=== PATIENT | female | born 1965 | race African-American/Black ===

== ENCOUNTER 2021-09-04 10:30 | Inpatient (IN) | payer MEDICAID ==
[~2021-09-04] VITALS: Ht 152.4 cm; Wt 124.8 kg
[~2021-09-04 10:30] MED LIST: AMLO-489 PO; FLUO-125 PO; LURA80TA PO; METO25TA5 PO; QUET200T45 PO
[2021-09-04] MEDS ORDERED: IPRATROPIUM BROM 0.5 MG/2.5ML INH SOL NEB ONE ×2 (12:15→12:45)
[2021-09-04] MEDS ORDERED: MAGNESIUM SULFATE 1GM/100ML 100 ML IV ONE (12:15)
[2021-09-04] MEDS ORDERED: ASPirin 81 mg TAB PO ONE (12:15)
[2021-09-04] MEDS ORDERED: ALBUTEROL SULF 2.5 MG/0.5ML(0.5%) NEB SOLN NEB ONE ×2 (12:15→12:45)
[2021-09-04 12:37] LABS: Basophils # (auto) 0.1 10 ^3/uL (0-0.2); Eosinophils # (auto) 0.2 10 ^3/uL (0-0.8); Eosinophils % (auto) 2.3 % (0.0-7.0); Hematocrit 35.9 % (36.0-46.0); Hemoglobin 11.6 g/dL (12.2-16.2); Lymphocytes # (auto) 2.6 10 ^3/uL (0.4-5.4); Lymphocytes % (auto) 31.7 % (10.0-50.0); Mean Corpuscular Hemoglobin 29.3 pg (28.0-32.0); Mean Corpuscular Hgb Conc. 32.4 g/dL (32.0-36.0); Mean Corpuscular Volume 90.4 fL (80.0-100.0); Monocytes # (auto) 0.7 10 ^3/uL (0-1.3); Monocytes % (auto) 8.3 % (0.0-12.0); Neutrophils # (auto) 4.7 10 ^3/uL (1.6-8.6); Neutrophils % (auto) 56.7 % (37.0-80.0); Nucleated Red Blood Cells % 0.2 %; Red Blood Cells 3.97 10^6/uL (4.0-5.20); Red Cell Distribution Width 14.3 % (11.8-14.3); White Blood Cell 8.3 10^3/uL (4.4-10.8)
[2021-09-04 12:55] LABS: Albumin 3.3 g/dL (3.4-5.0); BUN/Creatinine Ratio 21.2; Calcium 8.6 mg/dL (8.5-10.1); Potassium 3.8 mmol/L (3.5-5.1)
[2021-09-04 13:00] LABS: Bilirubin, Total 0.4 mg/dL (0.2-1.0); Total Protein 7.2 g/dL (6.4-8.2)
[2021-09-04] MEDS ORDERED: amLODIPine BESYLATE 5 MG TAB PO ONE (13:15)
[2021-09-04 14:18] LABS: Alcohol, Urine < 3.0 mg/dL (0-10); Amphetamine Screen, Urine NEGATIVE (NEGATIVE); Barbiturate Scree,Urine NEGATIVE (NEGATIVE); Benzodiazephine Screen, Urine NEGATIVE (NEGATIVE); Cannabinoid Screen, Urine NEGATIVE (NEGATIVE); Cocaine Screen, Urine NEGATIVE (NEGATIVE); Opiate Scree,Urine NEGATIVE (NEGATIVE); Phencyclidine Screen, Urine NEGATIVE (NEGATIVE)
[2021-09-04] MEDS ORDERED: cloNIDine HCL 0.1 MG TAB PO ONE (14:30)
[2021-09-04] MEDS ORDERED: predniSONE 20 MG TAB PO ONE (15:00)
[2021-09-04 15:14] LABS: Urine Bacteria FEW /hpf (None Seen); Urine Blood Negative /uL (Negative); Urine Mucus FEW (None Seen); Urine Specific Gravity 1.025 (1.001-1.035); Urine WBC 1 /hpf (0 - 5)
[2021-09-04] MEDS ORDERED: ENALAPRILAT 1.25 MG/ML-1ML VIAL IV ONE (15:15)
[2021-09-04] MEDS ORDERED: ONDANSETRON HCL 4 MG/2 ML VIAL IV PRN (16:15)
[2021-09-04] MEDS ORDERED: NITROGLYCERIN 0.4 MG SL TAB SL PRN (16:15)
[2021-09-04] MEDS ORDERED: MORPHINE SULFATE INJECTION 2 MG/ML SYRG IV PRN (16:15)
[2021-09-04 16:56] LABS: Cholesterol 152 mg/dL (< 200); HDL Cholesterol 55 mg/dL (40-59); LDL Cholesterol 77 mg/dL (< 100); Triglycerides 56 mg/dL (< 150)
[2021-09-04] MEDS: cloNIDine HCL 0.1 MG TAB PO PRN ×2 (17:48→22:21)
[2021-09-04] MEDS: ALBUTEROL SULF 2.5 MG/0.5ML(0.5%) NEB SOLN NEB SCH (18:24)
[2021-09-04] MEDS: IPRATROPIUM BROM 0.5 MG/2.5ML INH SOL NEB SCH (18:24)
[2021-09-04] MEDS: BUDESONIDE (INHALATION) 0.5 MG/2 ML NEB NEB SCH (18:24)
[2021-09-04] MEDS ORDERED: ASPI1TAB20 PO (18:27)
[2021-09-04 18:34] VITALS: BP 186/86
[2021-09-04] MEDS: FAMOTIDINE 20 MG TAB PO SCH (22:14)
[2021-09-04] MEDS: METOPROLOL TARTRATE 25 MG TAB PO SCH (22:15)
[2021-09-05 04:53] VITALS: BP 145/93
[2021-09-05] MEDS: ALBUTEROL SULF 2.5 MG/0.5ML(0.5%) NEB SOLN NEB SCH (06:26)
[2021-09-05] MEDS: BUDESONIDE (INHALATION) 0.5 MG/2 ML NEB NEB SCH (06:26)
[2021-09-05] MEDS: IPRATROPIUM BROM 0.5 MG/2.5ML INH SOL NEB SCH (06:26)
[2021-09-05 09:00] VITALS: BP 165/79
[2021-09-05] MEDS ORDERED: FLUoxetine HCL 20 MG CAP PO SCH (10:00)
[2021-09-05] MEDS ORDERED: amLODIPine BESYLATE 5 MG TAB PO SCH (10:00)
[2021-09-05] MEDS ORDERED: QUEtiapine FUMARATE 100 MG TAB PO SCH (10:00)
[2021-09-05] MEDS: METOPROLOL TARTRATE 25 MG TAB PO SCH (10:59)
[2021-09-05] MEDS: FAMOTIDINE 20 MG TAB PO SCH (11:02)
[2021-09-05 13:00] VITALS: BP 159/84
[2021-09-05] MEDS ORDERED: FLUT110A INH (13:18)
[2021-09-05] MEDS ORDERED: PRED20TA2 PO (13:18)
[2021-09-05] MEDS ORDERED: FAMO-161 PO (13:18)
[2021-09-05] MEDS ORDERED: METO25TA5 PO (13:18)
[2021-09-05] MEDS ORDERED: AMLO-489 PO (13:18)
[2021-09-05] MEDS ORDERED: CLON0.1T PO (13:18)
[2021-09-05] MEDS ORDERED: LIDO16CR EX (13:21)
[2021-09-05 15:57] VITALS: BP 161/92
== END 2021-09-05 17:26 | disposition home or self-care (01) | DRG 199 ==
LOC: EDBD 10:30 → ER 10:30 → TELE 16:09 → TELE-WESTW 17:57
PROVIDERS: ADMIT Hospitalist; ATTEND Hospitalist
DX: I16.1 Hypertensive emergency (principal); J96.01 Acute respiratory failure with hypoxia; I21.4 Non-ST elevation (NSTEMI) myocardial infarction; J45.901 Unspecified asthma with (acute) exacerbation; Z68.43 Body mass index [BMI] 50.0-59.9, adult; I11.9 Hypertensive heart disease without heart failure; Z20.822 Contact with and (suspected) exposure to COVID-19; E66.01 Morbid (severe) obesity due to excess calories; F17.210 Nicotine dependence, cigarettes, uncomplicated; F20.9 Schizophrenia, unspecified; Z88.0 Allergy status to penicillin; Z82.49 Family history of ischemic heart disease and other diseases of the circulatory system; Z86.73 Personal history of transient ischemic attack (TIA), and cerebral infarction without residual deficits
CPT/HCPCS: 36415; 71045; 80053; 80061; 80307; 81001; 83036; 83735; 83880; 84484; 85025; 87426; 93005; 93306; 94640; 96365; 96375; 99291; G0378

== ENCOUNTER 2023-03-12 08:41 | Inpatient (IN) | payer MEDICAID ==
[~2023-03-12] VITALS: Ht 144.8 cm; Wt 122.0 kg
[2023-03-12 00:20] VITALS: BP 152/89; PULSE 80; RESP 17; TEMP 98.3
[~2023-03-12 08:41] MED LIST changes: -AMLO-489 PO; +AMLO1TAB22 PO; +ASPI1TAB20 PO; +CLON0.1T PO; +FAMO-161 PO; +FLUT110A INH; +LIDO16CR EX; -LURA80TA PO; +LURA80TA2 PO; +PRED20TA2 PO
[2023-03-12] MEDS ORDERED: amLODIPine BESYLATE 5 MG TAB PO ONE (09:15)
[2023-03-12 11:23] LABS: Basophils # (auto) 0.1 10 ^3/uL (0-0.2); Basophils % (auto) 0.9 % (0.0-2.0); Eosinophils # (auto) 0.3 10 ^3/uL (0-0.8); Eosinophils % (auto) 3.2 % (0.0-7.0); Hematocrit 38.7 % (36.0-46.0); Hemoglobin 12.6 g/dL (12.2-16.2); Lymphocytes # (auto) 2.9 10 ^3/uL (0.4-5.4); Lymphocytes % (auto) 34.8 % (10.0-50.0); Mean Corpuscular Hemoglobin 29.1 pg (28.0-32.0); Mean Corpuscular Hgb Conc. 32.5 g/dL (32.0-36.0); Mean Corpuscular Volume 89.4 fL (80.0-100.0); Monocytes # (auto) 0.5 10 ^3/uL (0-1.3); Monocytes % (auto) 6.3 % (0.0-12.0); Neutrophils # (auto) 4.6 10 ^3/uL (1.6-8.6); Neutrophils % (auto) 54.8 % (37.0-80.0); Nucleated Red Blood Cells % 0.1 %; Red Blood Cells 4.33 10^6/uL (4.0-5.20); Red Cell Distribution Width 15.1 % (11.8-14.3); White Blood Cell 8.4 10^3/uL (4.4-10.8)
[2023-03-12 11:25] LABS: Albumin 3.3 g/dL (3.4-5.0); BUN/Creatinine Ratio 18.8 (10.0-20.0); Calcium 8.6 mg/dL (8.5-10.1); Potassium 3.7 mmol/L (3.5-5.1)
[2023-03-12 11:28] LABS: Bilirubin, Total 0.3 mg/dL (0.2-1.0); Total Protein 7.7 g/dL (6.4-8.2)
[2023-03-12] MEDS ORDERED: CEFTRIAXONE SODIUM 2 GM in D5W 5% 100 ML IV ONE (12:15)
[2023-03-12] MEDS ORDERED: ONDANSETRON HCL 4 MG/2 ML VIAL IV PRN (13:30)
[2023-03-12] MEDS ORDERED: MORPHINE SULFATE INJ 2 MG/ml SYRG IV PRN (13:30)
[2023-03-12] MEDS ORDERED: NITROGLYCERIN 0.4 MG SL TAB SL PRN (13:30)
[2023-03-12] MEDS ORDERED: DOCUSATE SOD 100 MG CAP PO PRN (13:30)
[2023-03-12] MEDS ORDERED: CLINDAMYCIN 300MG IV 50 ML IV ONE (13:30)
[2023-03-12] MEDS ORDERED: HYDROcodone-ACET 5/325MG TAB PO PRN (13:30)
[2023-03-12] MEDS: SODIUM CHLOR 0.9% PF (SALINE LOCK) 10ML VIAL/SYR IV SCH ×2 (14:00→22:30)
[2023-03-12 15:01] LABS: Cholesterol 150 mg/dL (< 200); HDL Cholesterol 55 mg/dL (40-59); LDL Cholesterol 88 mg/dL (< 100); Triglycerides 59 mg/dL (< 150)
[2023-03-12 15:13] VITALS: BP 179/108; PULSE 78; RESP 20; TEMP 97.5; O2SAT 95
[2023-03-12] MEDS: CLINDAMYCIN 300MG IV 50 ML IV SCH ×2 (18:57→22:00)
[2023-03-12] MEDS: ENOXAPARIN SOD 40 MG/0.4 ML SYRINGE SC SCH (18:57)
[2023-03-12] MEDS: cloNIDine HCL 0.1 MG TAB PO SCH ×2 (18:58→22:00)
[2023-03-12 21:15] VITALS: PULSE 90; RESP 16; O2SAT 97
[2023-03-12] MEDS: QUEtiapine FUMARATE 100 MG TAB PO SCH (22:31)
[2023-03-12] MEDS: FAMOTIDINE 20 MG TAB PO SCH (22:31)
[2023-03-12] MEDS: METOPROLOL TARTRATE 25 MG TAB PO SCH (22:31)
[2023-03-12 23:54] VITALS: PULSE 71; RESP 20; O2SAT 96
[2023-03-13] VITALS (14 sets, daily range): BP systolic 147–190; BP diastolic 70–89; PULSE 61–89; RESP 17–22; TEMP 97.4–98.8; O2SAT 91–99
[2023-03-13] MEDS: BUDESONIDE (INHALATION) 0.5 MG/2 ML NEB NEB SCH ×3 (00:25→20:33)
[2023-03-13] MEDS ORDERED: ARIP1TAB7 PO (01:12)
[2023-03-13] MEDS: cloNIDine HCL 0.1 MG TAB PO SCH ×3 (05:16→21:58)
[2023-03-13] MEDS: CLINDAMYCIN 300MG IV 50 ML IV SCH ×3 (05:17→22:49)
[2023-03-13] MEDS: SODIUM CHLOR 0.9% PF (SALINE LOCK) 10ML VIAL/SYR IV SCH ×3 (05:18→21:59)
[2023-03-13 06:34] LABS: Basophils # (auto) 0 10 ^3/uL (0-0.2); Basophils % (auto) 0.5 % (0.0-2.0); Eosinophils # (auto) 0.2 10 ^3/uL (0-0.8); Eosinophils % (auto) 2.6 % (0.0-7.0); Hematocrit 38.1 % (36.0-46.0); Hemoglobin 12.8 g/dL (12.2-16.2); Lymphocytes # (auto) 2.5 10 ^3/uL (0.4-5.4); Lymphocytes % (auto) 28.7 % (10.0-50.0); Mean Corpuscular Hemoglobin 29.5 pg (28.0-32.0); Mean Corpuscular Hgb Conc. 33.5 g/dL (32.0-36.0); Mean Corpuscular Volume 88.1 fL (80.0-100.0); Monocytes # (auto) 0.6 10 ^3/uL (0-1.3); Monocytes % (auto) 6.6 % (0.0-12.0); Neutrophils # (auto) 5.4 10 ^3/uL (1.6-8.6); Neutrophils % (auto) 61.6 % (37.0-80.0); Nucleated Red Blood Cells % 0.1 %; Red Blood Cells 4.33 10^6/uL (4.0-5.20); Red Cell Distribution Width 14.9 % (11.8-14.3); White Blood Cell 8.8 10^3/uL (4.4-10.8)
[2023-03-13 06:50] LABS: Albumin 3.1 g/dL (3.4-5.0); Calcium 8.6 mg/dL (8.5-10.1); Potassium 3.6 mmol/L (3.5-5.1)
[2023-03-13 06:56] LABS: BUN/Creatinine Ratio 21.3 (10.0-20.0); Bilirubin, Total 0.4 mg/dL (0.2-1.0); Total Protein 7.7 g/dL (6.4-8.2)
[2023-03-13] MEDS: ASPirin-EC 81 mg tab PO SCH (09:19)
[2023-03-13] MEDS: QUEtiapine FUMARATE 100 MG TAB PO SCH ×2 (09:19→21:57)
[2023-03-13] MEDS: FLUoxetine HCL 20 MG CAP PO SCH (09:20)
[2023-03-13] MEDS: amLODIPine BESYLATE 5 MG TAB PO SCH (09:20)
[2023-03-13] MEDS: ENOXAPARIN SOD 40 MG/0.4 ML SYRINGE SC SCH (09:21)
[2023-03-13] MEDS: predniSONE 20 MG TAB PO SCH (09:21)
[2023-03-13] MEDS: FAMOTIDINE 20 MG TAB PO SCH ×2 (09:21→21:57)
[2023-03-13] MEDS: METOPROLOL TARTRATE 25 MG TAB PO SCH ×2 (09:49→21:57)
[2023-03-13] MEDS ORDERED: LISINOPRIL 5 MG TAB PO SCH (10:00)
[2023-03-13] MEDS: LURASIDONE HCL 120 MG PO SCH (10:00)
[2023-03-13] MEDS: hydrALAZINE HCL 20 MG/ML VL IV PRN (17:17)
[2023-03-14] VITALS (11 sets, daily range): BP systolic 130–168; BP diastolic 66–79; PULSE 56–74; RESP 14–24; TEMP 97.9–98.7; O2SAT 87–99
[2023-03-14 04:24] LABS: Basophils # (auto) 0.1 10 ^3/uL (0-0.2); Basophils % (auto) 1.3 % (0.0-2.0); Eosinophils # (auto) 0.1 10 ^3/uL (0-0.8); Eosinophils % (auto) 1.4 % (0.0-7.0); Hematocrit 39.1 % (36.0-46.0); Lymphocytes # (auto) 3.1 10 ^3/uL (0.4-5.4); Lymphocytes % (auto) 31.7 % (10.0-50.0); Mean Corpuscular Hemoglobin 29.2 pg (28.0-32.0); Mean Corpuscular Hgb Conc. 33.1 g/dL (32.0-36.0); Mean Corpuscular Volume 88.3 fL (80.0-100.0); Monocytes # (auto) 0.7 10 ^3/uL (0-1.3); Monocytes % (auto) 7.1 % (0.0-12.0); Neutrophils # (auto) 5.7 10 ^3/uL (1.6-8.6); Neutrophils % (auto) 58.5 % (37.0-80.0); Nucleated Red Blood Cells % 0.1 %; Red Blood Cells 4.43 10^6/uL (4.0-5.20); Red Cell Distribution Width 14.9 % (11.8-14.3); White Blood Cell 9.8 10^3/uL (4.4-10.8)
[2023-03-14 04:29] LABS: BUN/Creatinine Ratio 28.6 (10.0-20.0); Calcium 8.7 mg/dL (8.5-10.1); Potassium 3.8 mmol/L (3.5-5.1)
[2023-03-14] MEDS: cloNIDine HCL 0.1 MG TAB PO SCH ×3 (06:14→21:51)
[2023-03-14] MEDS: CLINDAMYCIN 300MG IV 50 ML IV SCH (06:14)
[2023-03-14] MEDS: SODIUM CHLOR 0.9% PF (SALINE LOCK) 10ML VIAL/SYR IV SCH ×3 (06:15→21:51)
[2023-03-14] MEDS: FAMOTIDINE 20 MG TAB PO SCH ×2 (08:34→21:48)
[2023-03-14] MEDS: ASPirin-EC 81 mg tab PO SCH (08:34)
[2023-03-14] MEDS: METOPROLOL TARTRATE 25 MG TAB PO SCH ×2 (08:35→21:50)
[2023-03-14] MEDS: QUEtiapine FUMARATE 100 MG TAB PO SCH ×2 (08:35→21:48)
[2023-03-14] MEDS: amLODIPine BESYLATE 5 MG TAB PO SCH (08:35)
[2023-03-14] MEDS: ENOXAPARIN SOD 40 MG/0.4 ML SYRINGE SC SCH (08:36)
[2023-03-14] MEDS: predniSONE 20 MG TAB PO SCH (08:36)
[2023-03-14] MEDS: FLUoxetine HCL 20 MG CAP PO SCH (08:36)
[2023-03-14] MEDS: VALSARTAN 80 MG TAB PO SCH (08:36)
[2023-03-14] MEDS: LURASIDONE HCL 120 MG PO SCH (09:57)
[2023-03-14] MEDS: BUDESONIDE (INHALATION) 0.5 MG/2 ML NEB NEB SCH ×2 (10:20→18:08)
[2023-03-14] MEDS: CLINDAMYCIN HCL 150 MG CAP PO SCH ×2 (14:40→21:47)
[2023-03-14] MEDS ORDERED: ATORVASTATIN 20 MG TAB PO SCH (22:00)
[2023-03-15 05:00] VITALS: BP 160/77; PULSE 54; RESP 19; TEMP 98; O2SAT 94
[2023-03-15] MEDS: CLINDAMYCIN HCL 150 MG CAP PO SCH (05:08)
[2023-03-15] MEDS: cloNIDine HCL 0.1 MG TAB PO SCH (05:09)
[2023-03-15] MEDS: SODIUM CHLOR 0.9% PF (SALINE LOCK) 10ML VIAL/SYR IV SCH (05:09)
[2023-03-15] MEDS: hydrALAZINE HCL 20 MG/ML VL IV PRN (05:10)
[2023-03-15 05:36] LABS: Potassium 3.8 mmol/L (3.5-5.1)
[2023-03-15 05:48] LABS: Albumin 3.2 g/dL (3.4-5.0); BUN/Creatinine Ratio 19.3 (10.0-20.0); Bilirubin, Total 0.4 mg/dL (0.2-1.0)
[2023-03-15 05:59] LABS: Basophils # (auto) 0 10 ^3/uL (0-0.2); Basophils % (auto) 0.3 % (0.0-2.0); Eosinophils # (auto) 0.1 10 ^3/uL (0-0.8); Eosinophils % (auto) 1.3 % (0.0-7.0); Hematocrit 40.7 % (36.0-46.0); Hemoglobin 13.3 g/dL (12.2-16.2); Lymphocytes # (auto) 4.4 10 ^3/uL (0.4-5.4); Mean Corpuscular Hemoglobin 29.3 pg (28.0-32.0); Mean Corpuscular Hgb Conc. 32.7 g/dL (32.0-36.0); Mean Corpuscular Volume 89.5 fL (80.0-100.0); Monocytes # (auto) 0.7 10 ^3/uL (0-1.3); Monocytes % (auto) 6.2 % (0.0-12.0); Neutrophils # (auto) 6.3 10 ^3/uL (1.6-8.6); Neutrophils % (auto) 54.2 % (37.0-80.0); Nucleated Red Blood Cells % 0.3 %; Red Blood Cells 4.55 10^6/uL (4.0-5.20); Red Cell Distribution Width 15.1 % (11.8-14.3); White Blood Cell 11.7 10^3/uL (4.4-10.8)
[2023-03-15 09:00] VITALS: BP 183/79; PULSE 70; RESP 21; TEMP 97.7; O2SAT 92
[2023-03-15] MEDS ORDERED: CLIN300C70 PO (09:32)
[2023-03-15 09:50] VITALS: BP 183/79; PULSE 82; RESP 18; O2SAT 99
[2023-03-15] MEDS: BUDESONIDE (INHALATION) 0.5 MG/2 ML NEB NEB SCH (09:50)
[2023-03-15] MEDS: LURASIDONE HCL 120 MG PO SCH (09:57)
[2023-03-15 10:00] VITALS: PULSE 65; RESP 18; O2SAT 99
[2023-03-15] MEDS: FAMOTIDINE 20 MG TAB PO SCH (10:00)
[2023-03-15] MEDS: FLUoxetine HCL 20 MG CAP PO SCH (10:00)
[2023-03-15] MEDS: QUEtiapine FUMARATE 100 MG TAB PO SCH (10:00)
[2023-03-15] MEDS: ENOXAPARIN SOD 40 MG/0.4 ML SYRINGE SC SCH (10:00)
[2023-03-15] MEDS: predniSONE 20 MG TAB PO SCH (10:00)
[2023-03-15] MEDS: METOPROLOL TARTRATE 25 MG TAB PO SCH (10:01)
[2023-03-15] MEDS: ASPirin-EC 81 mg tab PO SCH (10:01)
[2023-03-15] MEDS: VALSARTAN 80 MG TAB PO SCH (10:02)
[2023-03-15] MEDS: amLODIPine BESYLATE 5 MG TAB PO SCH (10:02)
[2023-03-15 10:04] LABS: Hepatitis B Surface Antibody Negative (Negative)
[2023-03-15 12:53] LABS: Hepatitis B Surface Antigen Negative (Negative)
== END 2023-03-15 12:30 | disposition home or self-care (01) | DRG 383 ==
LOC: ER 08:41 → OVERFLOW 13:30 → CENTRAL 22:15
PROVIDERS: ADMIT Internal Medicine Pulmonary Disease; ATTEND Internal Medicine
DX: L03.116 Cellulitis of left lower limb (principal); Z68.43 Body mass index [BMI] 50.0-59.9, adult; E66.01 Morbid (severe) obesity due to excess calories; F17.210 Nicotine dependence, cigarettes, uncomplicated; F41.9 Anxiety disorder, unspecified; F20.9 Schizophrenia, unspecified; I16.0 Hypertensive urgency; J44.9 Chronic obstructive pulmonary disease, unspecified; F32.A Depression, unspecified; K21.9 Gastro-esophageal reflux disease without esophagitis; Z88.0 Allergy status to penicillin; Z86.73 Personal history of transient ischemic attack (TIA), and cerebral infarction without residual deficits
CPT/HCPCS: 36415; 80048; 80053; 80061; 83605; 83880; 85025; 86703; 86706; 86803; 87040; 87340; 93971; 94640; 96365; 96367; 96375; 97163; G0378; J0696; J3490; J7060

== ENCOUNTER 2024-09-04 22:01 | Emergency (ER) | payer MEDICAID ==
[~2024-09-04] VITALS: Ht 152.4 cm; Wt 81.8 kg
[~2024-09-04 22:01] MED LIST changes: +ARIP20TA4 PO; +CLIN1CAP70 PO
[2024-09-04 22:50] VITALS: BP 198/92; TEMP 97.8
--- NOTE | 2024-09-04 23:00 | ECG ---
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
[2024-09-04 23:17] VITALS: PULSE 101; RESP 18; O2SAT 93
--- NOTE | 2024-09-05 00:32 | ED.PDOC ---
HPI (NEURO) HPI Comments 58y F who presents to the ED via EMS for chief complaint of generalized weakness. Pt states she has been having generalize weakness since earlier this AM. Pt states this AM, she had trouble getting out of bed and reaching her walker and called EMS. EMS states pt had elevated heart rate at 111 with noted BP with systolic value in the 180's upon arrival to residence. Pt now in the ED, has stable vitals. Pt in the ED, states she has history of HTN but states she has not taken her medications in the past 4 months. Pt has noted history of CVA in 2015 with speech deficits. Pt has history of HTN, hyperlipidemia, and schizophrenia. Pt is alert and oriented x 4. Pt denies any other symptoms at this time. Chief Complaint: General Weakness Time Seen by MD: 00:25 Primary Care Provider: KRISTI Barba Notes: Hardscape Foreman Notes Information Source: Patient Mode of Arrival: EMS Brought in by: EMS Vital Signs Vital Signs Date Time Temp Pulse Resp B/P (MAP) Pulse Ox O2 Delivery O2 Flow Rate FiO2 09/05/24 00:34 94 09/04/24 23:17 18 93 Room Air* 0 21 09/04/24 22:50 97.8 198/92 (127) 97.8 Past Medical History PAST MEDICAL HISTORY: Anxiety, Depression, HTN, Schizophrenia, TIA Surgical History: Denies all surgeries MEDICATION CARE MANAGER History: Denies all MEDICATION CARE MANAGER Hx Family History Family History: Reviewed,noncontributory to illness Social History Smoker: Cigarettes, Less Than 1 Pack/Day Alcohol: Denies ETOH Use Drugs: Denies Drug Use Lives In: Home EKG EKG : Pulse Rate (adult): 94 [place]: Normal Cardiac Rhythm: NSR Block: None Hypertrophy: LAE, LVH ST: Normal Comments borderline prolonged NE interval, Was a procedure done? Was a procedure done?: No Differential Diagnosis (SZ) General Weakness: Anemia, Electrolyte imbalance, Encephalopathy, Hypoglycemia, Hypotension, TIA, Vertigo: central, Vertigo: peripheral, Other (HTN, HTN urgency, ) X-Ray, Labs, Meds, VS Vital Signs Date Time Temp Pulse Resp B/P (MAP) Pulse Ox O2 Delivery O2 Flow Rate FiO2 09/05/24 00:34 94 09/04/24 23:17 101 18 93 Room Air* 0 21 09/04/24 22:50 97.8 101 20 198/92 (127) 93 97.8 2/10/25 22:23 94 09/04/24 22:13 94 09/04/24 22:06 97.5 111 16 153/90 (595) 94 Time of 1ST Reevaluation: 00:55 Reevaluation 1ST: Unchanged Patient Education/Counseling: Other Family Education/Counseling: No Family Present Departure 1 Departure Time of Disposition: 02:32 Impression: Primary Impression: Hypertension Additional Impression: Eloped from emergency department Disposition: 07 LEFT AWOL/ELOPED Condition: Stable Comments 58-year-old female who came to the emergency department because she has stated she felt too weak to get up from her bed to her walker. She has been out of her high blood pressure medication. The patient was awake, alert, oriented. She initially refused lab stating she did not want to be here. Discussed with her sister "Caprice" over the phone who stated patient has a history of schizophrenia.. Patient eloped from the emergency department. She was observed by nurse to be able to ambulate on her own without difficulty. I was unable to locate patient in the emergency department, in the lobby or outside of the emergency department. Patient's sister was notified that she cleft. Extensive evaluation was performed in attempt to identify or rule out: (See differential diagnosis section) The following tests were ordered, and results were reviewed by me: (See diagnostic results section) The following test were independently interpreted by me: EKG I reviewed and agreed with the following test results read by other providers: N/A I reviewed the following notes from the pt's past medical encounters: N/A Additional information was gathered from interviewing the following independent historians: Patient's sister Discussion of management or test interpretation with external physician/other qualified health caretaker: N/A Addressed an acute or chronic illness that poses a threat to life or bodily function: Difficulty ambulating, uncontrolled hypertension Decision regarding hospitalization or escalation of hospital level of care: Risk and benefits of admission for further treatment of patient's condition was considered. Due to patient's current clinical condition, high risk of decline and poor outcome if discharged and need for further inpatient management and monitoring, patient will be admitted to the hospital. Drug therapy requiring intensive monitoring for toxicity: N/A Parenteral controlled substances: N/A Decision regarding elective major surgery with identified patient or procedure risk factors: N/A Decision regarding emergency major surgery: N/A Decision not to resuscitate or to de-escalate care because of poor prognosis: N/A Diagnosis or treatment significantly limited by social determinants of health: N/A Critical Care Note Critical Care Time?: No Stability Stability form required: No Heart Score Heart Score: Heart Score Response (Comments) Value History N/A 0 EKG N/A 0 Age N/A 0 Risk Factors N/A 0 Troponin N/A 0 Total 0 I personally scribed for JOSE MIGUEL MD ([email or web address]) on 09/05/24 at 00:32. Electronically submitted by Nelson Aguayo (CHANNING). I personally scribed for JOSE MIGUEL MD ([email or web address]) on 09/05/24 at 00:34. El ectronically submitted by Nelson Aguayo (CHANNING). JOSE MIGUEL MD Sep 05, 2024 00:32
[2024-09-05 00:34] VITALS: PULSE 94
[2024-09-05] MEDS ORDERED: cloNIDine HCL 0.1 MG TAB PO ONE (01:45)
== END 2024-09-05 02:32 | disposition left against medical advice (07) ==
LOC: ER 22:01 → EDBD 22:01 → ER 09-05 02:32
DX: I10 Essential (primary) hypertension (principal); F17.210 Nicotine dependence, cigarettes, uncomplicated; E78.5 Hyperlipidemia, unspecified; Z86.73 Personal history of transient ischemic attack (TIA), and cerebral infarction without residual deficits
CPT/HCPCS: 93005